=== PATIENT | female | born 1985 | race Caucasian/White ===

== ENCOUNTER 2017-08-10 17:26 | Emergency (ER) | payer OTHER ==
[2017-08-10 18:41] VITALS: BMI 27.8
[2017-08-10] MEDS ORDERED: Betamethasone Soluspan 30 mg/5mL Inj Susp IM ONE (19:26)
[2017-08-11 03:10] VITALS: BP 82/53; PULSE 106; RESP 16; TEMP 98.6; O2SAT 100
== END 2017-08-10 22:45 | disposition home or self-care (01) ==
LOC: H.EROB2 17:26
DX: O36.8131 Decreased fetal movements, third trimester, fetus 1 (principal); O24.419 Gestational diabetes mellitus in pregnancy, unspecified control; Z3A.36 36 weeks gestation of pregnancy
CPT/HCPCS: 96372; 99283; J0702

== ENCOUNTER 2017-08-11 08:51 | Inpatient (IN) | payer OTHER ==
[2017-08-11] MEDS ORDERED: Betamethasone Soluspan 30 mg/5mL Inj Susp IM ONE (09:27)
--- NOTE | 2017-08-11 10:47 | OBADHP ---
Datetime: 08/11/2017 10:16 IP Adm Impression Other: Intrahepatic cholestasis of . GDMA 2 Admit Comment, IP Provider: 32yo with IUP at 36.2wks here today for a repeat Celostone injectio n and admission for induction of labor as recommended by Dr Bush. SHe denies VB or lof. She repor ts feeling good movements. Pt has GDMA 2 on glyburide and Intrahepatic cholestasis on actigall. [place]- occasional contractions, FHR- Category 1, Cx- 0/0/-3 Assessment: - IUP at 36.2 wks - GDMA2 - Intrahepatic cholestasis of - For 2nd dose of Betamethazone Plan: Admit for induction of labor Cervical ripening with Cervidil Monitor progress of labor Pelvic Type - PN: Adequate Extremities - PN: Normal Abdomen - PN: Normal Lungs - PN: Normal Heart - PN: Normal Neurologic - PN: Normal General - PN: Normal Presentation-Admit: Vertex FHR - Baseline A Provider: 150 Membranes, Provider: Intact Contraction Comments Provider: Q 5-7 Comments, ACOG Physical Exam: Abd: Soft, NT, BS- present Gestation - Est Wks by US: 36.2 Vital Signs Provider: Reviewed IP Chief Complaint: Scheduled induction of labor; Other NICHD Variability Prov Fetus A: Moderate 6-25bpm NICHD Accel Fetus A IP Provider: [id number] FHR Category Provider Fetus A: Category I NICHD Decel Fetus A IP Provider: None Dilatation, Provider: 0 Effacement, Provider: 50 Station, Provider: -3 Genitourinary Exam: Normal EGA AdmitDate IP: 36.2 IP Adm Impression: , intrauterine ; No Active Labor IP Admit Plan: Admit to unit; Initiate labor induction protocol Datetime: 08/10/2017 18:00 Back - PN: Normal Breast - PN: Not Done Thyroid - PN: Not Done HEENT - PN: Normal DTRs - PN: Not Done
[2017-08-11 11:25] LABS: BASO % 0.3 % (0.0-2.0); HEMOGLOBIN 12.2 g/dL (12.0-16.0); LYMPH # 0.9 K/uL (1.0-4.3); LYMPH % 7.9 % (20.0-40.0); MEAN CELL VOLUME 87.1 fl (81.0-99.0); MEAN CORPUSCULAR HEMOGLOBIN 29.6 pg (27.0-31.0); MEAN PLATELET VOLUME 12.2 fl (7.2-11.7); MONO # 0.4 K/uL (0.0-0.8); MONO % 3.5 % (0.0-10.0); NEUT # 9.7 K/uL (1.8-7.0); NEUT % 88.3 % (50.0-75.0); NRBC % 0.1 % (0.0-0.0); PLATELET COUNT 113 K/uL (130-400); RBC 4.12 Mil/uL (3.80-5.20); RED CELL DISTRIBUTION WIDTH 14.8 % (11.5-14.5)
[2017-08-11] MEDS: Lactated Ringer's 1,000 ML IV SCH ×4 (11:28→23:35)
[2017-08-11 11:51] LABS: ALB/GLOB RATIO 0.8 (1.0-2.1); ALBUMIN 3.1 g/dL (3.5-5.0); ALT/SGPT 121 U/L (9-52); AST/SGOT 54 U/L (14-36); BLOOD UREA NITROGEN 8 mg/dl (7-17); GFR AFRICAN-AMERICAN > 60; GFR NON-AFRICAN AMERICAN > 60
[2017-08-11 12:22] LABS: BANDS 1 % (0-2); LYMPHOCYTE 9 % (20-50); MONOCYTE 2 % (0-10); NEUTROPHIL 88 % (42-75); TOTAL CELLS COUNTED 100
[2017-08-11 12:23] LABS: ANISOCYTOSIS SLIGHT; LARGE PLATELETS PRESENT; PLATELET ESTIMATE DECREASED (NORMAL)
[2017-08-11 14:38] LABS: SQUAMOUS EPITHIAL 14 /hpf (0-5); URINE BACTERIA MOD (<OCC); URINE BILIRUBIN NEGATIVE (NEGATIVE); URINE BLOOD NEGATIVE (NEGATIVE); URINE CLARITY CLOUDY (Clear); URINE COLOR YELLOW (YELLOW); URINE GLUCOSE (UA) NEG (Normal); URINE LEUKOCYTE ESTERASE TRACE Leu/uL (Negative); URINE NITRATE NEGATIVE (NEGATIVE); URINE PROTEIN NEGATIVE (NEGATIVE); URINE UROBILINOGEN 0.2-1.0 mg/dL (0.2-1.0)
[2017-08-11] MEDS ORDERED: Nalbuphine 20 mg/ml Inj (1 ml) IVP PRN (20:46)
[2017-08-11] MEDS ORDERED: Fentanyl/Bupivacaine HCl 250 ML EPI ONE (22:09)
[2017-08-12] MEDS ORDERED: Phenylephrine 10 mg/ml Inj ONE (00:11)
[2017-08-12] MEDS ORDERED: Oxytocin 30 UNITS in Sodium Chloride 0.9% 500 ML IV ONE (00:15)
[2017-08-12] MEDS ORDERED: ceFAZolin IV 2 gm in Dextrose 2 GM/50 ML BAG IVPB ONE ×2 (00:40→02:45)
[2017-08-12] MEDS ORDERED: ceFAZolin 2 GM in Sodium Chloride 0.9% 100 ML IVPB ONE (00:51)
[2017-08-12] MEDS ORDERED: Morphine 5 mg/10 ml preservative-free Inj(Duramorph) ONE (01:03)
[2017-08-12] MEDS ORDERED: Lidocaine 2% PF (10 ml) Amp ONE ×2 (01:04→01:12)
[2017-08-12] MEDS ORDERED: DiphenhydrAMINE 50 mg/ml Inj IVP PRN ×2 (01:58→05:10)
[2017-08-12] MEDS ORDERED: Oxycodone/Acetaminophen 5/325 mg Tab PO PRN ×3 (02:00→05:10)
[2017-08-12] MEDS ORDERED: Morphine 5 MG/ML SYRINGE IV PRN (02:00)
--- NOTE | 2017-08-12 02:06 | PCM.SURG1 ---
Surgeon's Initial Post Op Note - Surgeon's Notes Surgeon: Dr Chery Dialysis Chief Equipment Technician: Mattie Angeles( Family Practice Resident) Type of Anesthesia: Spinal Anesthesia Administered By: Dr Weber Pre-Operative Diagnosis: IUP at 36wks in Labor, GDMA2 with Non Reassuring Heart Rate Tracing( Repetitive Late decelerations ) Operative Findings: Live Male Baby with BW of 7ibs 4 oz and scores of 9 and 9. delivered in cephalic presentation with clear amniotic fluid and fundal placenta. The uterus as well as both fallopian tubes and ovaries appeared normal. EBL- 500mls. IVFluids- 1400mls. Urine output- 200mls Post-Operative Diagnosis: Same as Preop Diagnosis Operation Performed: Primary Low Transverse Section. Specimen/Specimens Removed: Placenta and umbilical cord blood Estimated Blood Loss: EBL {In ML}: 500 Blood Products Given: N/A Post-Op Condition: Good Date of Surgery/Procedure: 08/12/17 Time of Surgery/Procedure: 02:10
[2017-08-12] MEDS ORDERED: Lactated Ringer's 1,000 ML IV SCH (05:10)
--- NOTE | 2017-08-12 09:14 | OBPN ---
Datetime: 08/12/2017 00:50 IP Progress Impression: Non-reassuring heart rate IP Informed Consent Obtain: Section Delivery IP Procedures: Sterile Vag Exam IP Progress Plan: Deliver- Section Membranes, Provider: Intact Contraction Comments Provider: Q 2-3 FHR - Baseline A Provider: 160 IP Fetus A Comments: Repetitive Late deceleration Gestation - Est Wks by US: 36.3 Presentation-Admit: Vertex IP Progress Note Comment: IUP at 36wks being induced for Intrahepatic cholestasis, GDMA2 Non reassuring Heart rate tracing Plan: Delivery discussed with Pt. Pt had all questions answered. Consents obtained. Plan: To OR for Delivery. NICHD Accel Fetus A IP Provider: Prolonged NICHD Variability Prov Fetus A: Minimal - Undetectable to <5bpm Dilatation, Provider: 2 Effacement, Provider: 50 Station, Provider: -3 NICHD Decel Fetus A IP Provider: Late Datetime: 08/11/2017 10:16 Vital Signs Provider: Reviewed FHR Category Provider Fetus A: Category I
--- NOTE | 2017-08-12 09:14 | OBDS ---
MATERNAL INFORMATION Provider Comments: Primary section with delivery of a viable male with BW of 7Ib 4 o z and APGARS of 9 and 9. EBL- 500mls. LABOR SUMMARY EDC: 09/06/2017 00:00 No. Babies in Womb: 1 LABOR INFORMATION Cervical Ripening Agents: Cervidil Group B Beta Strep: Not Done CSECTION DELIVERY CSection Incision: Lower Uterine Transverse Uterine Closure: Double-layer closure INFORMATION BABY A Gestational Age at Delivery: 36.2 IDENTIFICATION/MEDS BABY A ID Band Number: [id number]
--- NOTE | 2017-08-12 11:11 | OBPPN ---
Datetime: 08/12/2017 11:09 PP Pain Prov: Within normal limits PP Nausea Prov: Denies PP Flatus Prov: Yes PP Breasts Prov: Not Done PP Heart Prov: Normal PP Lungs Prov: Normal PP Abdomen/Uterus Prov: Not Done PP Lochia Prov: Not Done PP Vulva/Perineum Prov: Not Done PP CVA Tenderness Prov: Normal PP Extremities Prov: Normal PP C/S Incision Prov: Normal PP Progress Prov: Normal PP Impression Prov: Normal progression PP Plan Prov: Continue present management PP Progress Note Prov: Patient doing well pain well-controlled denies any nausea vomiting reports mi nimal lochia Vital signs stable afebrile Uterus firm below the umbilicus Extremities no Homans Postoperative days 0 Ambulatory, regular diet, analgesics as needed Vital Signs Provider PP: Reviewed
--- NOTE | 2017-08-12 13:40 | OP ---
PROCEDURE DATE: 08/12/2017 PREOPERATIVE DIAGNOSIS: Intrauterine at 36 weeks, in labor with nonreassuring heart tracing. POSTOPERATIVE DIAGNOSIS: Intrauterine at 36 weeks, in labor with nonreassuring heart tracing. PROCEDURE DONE: Primary low transverse section performed on 08/12/2017. SURGEON: Reece Nieves MD. INSPECTOR RAG SORTING: , family practice resident. Assistance in this procedure was needed for exposure of tissues and helping the delivery of the baby. The assistant golf course superintendent remained with the surgery throughout its entire length. TYPE OF ANESTHESIA: Spinal. ANESTHESIA ADMINISTERED BY: Seanin. OPERATIVE FINDINGS: A live male with weight of 7 pounds 4 ounces and scores of 9 in the first and fifth minutes respectively. Baby was delivered in cephalic presentation with clear amniotic fluid and fundal placenta. The uterus as well as both fallopian tubes and ovaries appeared normal. ESTIMATED BLOOD LOSS: About 500 mL. IV FLUIDS: 1400 mL. URINE OUTPUT: 200 mL of clear urine. COMPLICATIONS: None. SPECIMEN: Placenta and umbilical cord blood. DESCRIPTION OF PROCEDURE: After obtaining informed consent, the patient was sent to the OR with IV running and Fernandez catheter in place. Patient was sat on the OR table and after adequate final anesthesia, the patient was placed in supine position with left lateral tilt. The patient was then prepped and draped in the usual sterile fashion. Using a scalpel, a Pfannenstiel skin incision was made about 2.5 cm from the pubic symphysis and this incision was sent through the subcutaneous tissue till the rectus fascia was identified. Using a Bovie device, a transverse incision was made in the rectus fascia and the incision was extended to both sides by means of blunt dissection. The rectus fascia was lifted off the underlying rectus muscles both superiorly and inferiorly by means of blunt dissection and sharp dissection with a Agston scissors. The rectus muscle was in the midline to expose the peritoneum, which was tented between 2 Geovanna clamps and sharply entered with Metzenbaum scissors and with good visualization of the bladder. Once the abdominal cavity was entered, the vesicouterine fold of the peritoneum was identified, incised in a transverse fashion using Metzenbaum scissors. The bladder peritoneum was then retracted inferiorly to expose the lower uterine segment. A low transverse incision was made using a scalpel. This incision was sent through the myometrial layers until the amniotic membranes were identified. The incision was extended to both sides by means of a blunt dissection. Amniotic membranes were ruptured using a pickup forceps and the baby which was located in the left occipito-anterior positioning was delivered. Baby cried immediately after . The mouth and nostrils were bulb suctioned and the umbilical cord was clamped and cut and the baby was given to the nurse. Umbilical cord blood was obtained and placenta was manually removed from the uterine cavity. The uterus was then brought out of the abdominal cavity and the cavity was cleaned of all debris using dry laparotomy pads. The uterine incision was then closed in two layers using Vicryl #0, the first layer in a running locked fashion and the second layer in a running fashion imbricating the first layer. Once hemostasis had been noted, irrigation of the incisional site and cul-de-sac was performed using warm normal saline. The uterus was then returned into the abdominal cavity after removing all instruments and laparotomy pads. Hemostasis was noted. Attention was turned to the anterior abdominal wall, which was closed in layers with 2-0 Vicryl for the peritoneum and the rectus muscles. The rectus fascia was re-approximated using Vicryl #0. The subcutaneous tissue was brought together by means of #2-0 plain catgut. The skin was closed in a subcuticular fashion using #4-0 Vicryl. All counts of instruments, laparotomy pads, and needles used were correct x3 and the patient was sent to the recovery room awake and in stable condition. Reece Nieves MD
[2017-08-12] MEDS: Oxycodone/Acetaminophen 5/325 mg Tab PO PRN ×2 (17:46→22:05)
[2017-08-13] MEDS: Oxycodone/Acetaminophen 5/325 mg Tab PO PRN (07:01)
[2017-08-13 07:04] LABS: HEMOGLOBIN 10.8 g/dL (12.0-16.0); MEAN CELL VOLUME 86.6 fl (81.0-99.0); MEAN CORPUSCULAR HEMOGLOBIN 29.9 pg (27.0-31.0); MEAN CORPUSCULAR HGB CONC 34.6 g/dL (33.0-37.0); RBC 3.59 Mil/uL (3.80-5.20); RED CELL DISTRIBUTION WIDTH 15.3 % (11.5-14.5); WHITE BLOOD COUNT 12.6 K/uL (4.8-10.8)
--- NOTE | 2017-08-14 12:51 | OBPPN ---
Datetime: 08/14/2017 12:47 PP Pain Prov: Within normal limits PP Nausea Prov: Denies PP Flatus Prov: Yes PP Breasts Prov: Normal PP Heart Prov: Normal PP Lungs Prov: Normal PP Abdomen/Uterus Prov: Normal PP Lochia Prov: Normal PP Vulva/Perineum Prov: Normal PP CVA Tenderness Prov: Normal PP Extremities Prov: Normal PP Comments Phys Exam Prov: Fundus firm under umbilicus PP Impression Prov: Normal progression PP Plan Prov: Continue present management PP Progress Note Prov: Patient denies CP, no SOB, no N/V, tolerating PO diet, ambulating/voiding wel l, mild lochia, abdominal pain tolerable with meds, +flatus A/P POD #2 1. Continue postop order 2. Reg diet 3. Percocet/Motrin prn pain IP PP Procedures: None Vital Signs Provider PP: Reviewed; Within Normal Limits
--- NOTE | 2017-08-15 07:46 | OBPPN ---
Datetime: 08/15/2017 07:38 PP Pain Prov: Within normal limits PP Nausea Prov: Denies PP Flatus Prov: Yes PP BM Prov: Yes PP Abdomen/Uterus Prov: Normal PP Lochia Prov: Normal PP Extremities Prov: Normal PP C/S Incision Prov: Normal PP Progress Prov: Normal PP Comments Phys Exam Prov: Incision: intact w/ steri strips PP Impression Prov: Normal progression PP Plan Prov: Continue present management PP Progress Note Prov: POD 3 s/p primary c/s, doing well, breast and bottle feeding Pt may go home tomorrow, still deciding Continue current management Vital Signs Provider PP: Within Normal Limits
--- NOTE | 2017-08-15 09:35 | OBDCSUM ---
Datetime: 08/15/2017 09:34 Discharged to, Provider: Home Follow up at, Provider: Arvind Disch Instr Activity: Normal activity Disch Instr Diet: Regular Discharge Instructions, Provider: Routine instructions given Discharge Diagnosis, Provider: Term Delivered Discharge Time: 08/15/2017 09:34 Follow up in weeks, Provider: 1 week Contraception discussed, Prov: No Disch Activity Restrictions: No exercising; No lifting; No driving; No sexual activity; Nothing in v agina - [place], tampons, douche
[2017-08-15 21:01] VITALS: BP 105/72; PULSE 69; RESP 20; TEMP 97.3; O2SAT 95
== END 2017-08-15 14:15 | disposition home or self-care (01) | DRG 765 ==
LOC: H.EROB2 08:51 → H.L&D 08:54 → H.EROB2 10:55 → H.OB/GYN 08-12 04:50
PROVIDERS: ADMIT Obstetrics & Gynecology Gynecology; ATTEND Obstetrics & Gynecology Gynecology
PROC: 10D00Z1 Extraction of Products of Conception, Low, Open Approach (ICD-10-PCS; principal; 2017-08-11)
PROC: 4A1HXCZ Monitoring of Products of Conception, Cardiac Rate, External Approach (ICD-10-PCS; 2017-08-11)
DX: O76 Abnormality in fetal heart rate and rhythm complicating labor and delivery (principal); K83.1 Obstruction of bile duct; O26.62 Liver and biliary tract disorders in childbirth; O24.429 Gestational diabetes mellitus in childbirth, unspecified control; Z37.0 Single live birth; Z3A.36 36 weeks gestation of pregnancy